=== PATIENT | female | born 1955 | race Asian ===

== ENCOUNTER 2020-06-20 14:58 | Outpatient (CLI) | payer BC ==
--- NOTE | 2020-06-20 15:16 | RAD ---
EXAM: Chest 2 views: HISTORY: Dyspnea COMPARISON: None. FINDINGS: There is a normal-sized cardiomediastinal silhouette. There appears be a small to moderate left pleur al effusion with adjacent atelectasis versus infiltrate. The opacity in the left lung base may be slightly nodular in appearance. No acute osseous abnormality. IMPRESSION: Left pleural effusion with adjacent atelectasis versus infiltrate. The atelectasis appears slightly n odular in the left lung base and a mass cannot be entirely excluded.
== END 2020-06-20 14:59 | disposition home or self-care (01) ==
LOC: BICRAD 14:58
PROVIDERS: ATTEND Internal Medicine
DX: R06.00 Dyspnea, unspecified (principal); J90 Pleural effusion, not elsewhere classified; R91.8 Other nonspecific abnormal finding of lung field
CPT/HCPCS: 71046

== ENCOUNTER 2020-07-18 13:22 | Outpatient (CLI) | payer BC ==
[2020-07-18] MEDS ORDERED: Iopamidol-370 76% 500 ML 1 ML ONE (13:24)
--- NOTE | 2020-07-18 14:56 | CT ---
CT OF CHEST PERFORMED WITH CONTRAST ENHANCEMENT: 07/18/20 HISTORY: Nodular density seen associated with the left pleural effusion on recent chest x-ray. COMPARISON: Chest x-ray exam of 06/20/20. A large left pleural effusion is noted. There is associated pronounced atelectasis of the left lower lobe. There is a right lower lobe pulmonary nodule measuring 8 mm. There is some small 4 to 5 mm are as of nodularity along the minor fissure on the right. There is pleural based nodularity seen along t he anterior chest wall on the left. This would suggest that this is a malignant pleural effusion. There is mild left hilar adenopathy. There is enlarged prevascular lymph nodes measuring 10 to 11 mm in size and moderate left axillary adenopathy. In addition to these findings, there is an area of no dularity within the right breast which is indeterminate but could represent an additional breast mass in addition to the large 4.4 cm mass seen within the left breast. The visualized liver parenchyma shows diffuse fatty change. Right and left adrenal glands are normal. There is some small peripancreatic nodes and small gastrohepatic lymph nodes not definitely signific antly enlarged. No evidence of sclerotic bone lesion. This is most evident in the thoracic spine. IMPRESSION: 1. 4.3 cm lobulated left breast mass with nipple retraction and left axillary adenopathy. In add ition, there is evidence for metastatic disease. There is a right lower lobe pulmonary nodule. There is a large left pleural effusion with some changes along the pleura on the left which would suggest t his may represent a malignant pleural effusion and mediastinal lymphadenopathy. 2. Sclerotic bone lesions compatible with sclerotic bone metastases. 3. Nodular density within the right breast. Cannot exclude this is an additional breast mass. 4. Diffuse fatty change to the liver. 5. These findings were telephoned to Dr. Diez. POS: [facility] – [place]
== END 2020-07-18 13:23 | disposition home or self-care (01) ==
LOC: BICCT 13:22
PROVIDERS: ATTEND Internal Medicine
DX: R91.8 Other nonspecific abnormal finding of lung field (principal); N63.20 Unspecified lump in the left breast, unspecified quadrant; R59.0 Localized enlarged lymph nodes; R91.1 Solitary pulmonary nodule; J90 Pleural effusion, not elsewhere classified; M89.8X8 Other specified disorders of bone, other site; R92.2 Inconclusive mammogram; K76.0 Fatty (change of) liver, not elsewhere classified
CPT/HCPCS: 71260; 82565

== ENCOUNTER 2020-07-25 10:18 | Day surgery (SDC) | payer BC ==
[2020-07-24 13:41] VITALS: BMI 27.3
--- NOTE | 2020-07-25 10:46 | HP ---
HISTORY OF PRESENT ILLNESS: She is a pleasant 64-year-old [employer], who was seen by Dr. Isidoro Watkins, surgeon, for invasive ductal carcinoma of the left breast. She is now having difficulty breathing off and on for a period of time. Without any associated chest pain, chills, or sweats, but she did say she was having some difficulty breathing. In fact, up until recently, she has been relatively healthy. In fact, has no other major medical problems. She is a nonsmoker, nondrinker. No prior history of TB, pneumonia, or bronchial asthma. PAST MEDICAL HISTORY: Diabetes and hypertension. PREVIOUS SURGERIES: None until the recent breast associated biopsy. CHRONIC MEDICATIONS: 1. Vitamins. 2. Maybe Xanax. ALLERGIES: NO MEDICATION. SOCIAL HISTORY: Alcohol minimal. Tobacco, never used and negative. PHYSICAL EXAMINATION: VITAL SIGNS: Sats 90% on room air, pulse 110, blood pressure 138/80. CHEST: Decreased breath sounds, left lower 1/3. Right lung unremarkable. CARDIAC: Sinus tach. ABDOMEN: Soft. No mass. NEUROLOGIC: Unremarkable. ASSESSMENT: Left pleural effusion, metastatic breast carcinoma. PLAN: Outpatient thoracentesis has been performed. Further directions after above. Job ID: [id number]
--- NOTE | 2020-07-25 11:52 | RAD ---
RADIOGRAPH CHEST 1 VIEW: DATE: 07/25/2020 TIME: 11:41 AM HISTORY: 64-year-old female status post thoracentesis COMPARISON: 06/20/2020 FINDINGS: There has been interval decrease in left pleural effusion. There is residual airspace density at left lung base. No pulmonary edema. No pneumothorax. No cardiom egaly or mediastinal widening. Right lung pérez are clear. IMPRESSION: 1) interval decrease in volume of now apparently small left pleural effusion. 2) residual airspace densities at left lung base probably represents atelectasis, although pneumonia cannot be excluded. 3) no pneumothorax.
[2020-07-25 12:57] LABS: RBC Count-Automated (BF) 48013 /cu.mm; WBC/Nucleated-Auto (BF) 1779 uL
[2020-07-25 13:25] LABS: Body Fluid Source Thoracentesis Fluid
[2020-07-25 13:26] LABS: BF Color Red; Clarity Cloudy/Turbid (Clear); Tube # 1
--- NOTE | 2020-07-25 13:28 | OP ---
DATE OF PROCEDURE: 07/25/2020 PROCEDURE PERFORMED: Thoracentesis. INDICATION: Left pleural effusion. DESCRIPTION OF PROCEDURE: After informed consent, the patient was sitting upright in bed. The left posterior thorax was cleaned with chlorhexidine. Thereafter, 1% lidocaine was infiltrated in the left midscapular line using a 23-gauge needle all the way to the pleura. Pleural cavity was entered in and about 20 mL of bloody effusion was removed thereafter using an 8-Khmer catheter, a total of 1400 mL of bloody effusion was removed. The patient tolerated the procedure well. She did have some pleuritic chest pain postprocedure. X-ray pending. Pleural effusion was sent for appropriate studies including cytology and culture. DC NOTE;;; she tolerated the procedure well. Results revealed to the patient and family, further recommendation after above. Job ID: [id number] MTDD
[2020-07-25 13:48] LABS: BF Segmented Neutrophils 1 %; Cell Count Non Hematic 55 %; Lymphocytes 44 %
== END 2020-07-25 12:05 | disposition home or self-care (01) ==
LOC: SDC 10:18
PROVIDERS: ATTEND Internal Medicine Pulmonary Disease
PROC: 0BJQ3ZZ Inspection of Pleura, Percutaneous Approach (ICD-10-PCS; principal; 2020-07-25)
DX: J90 Pleural effusion, not elsewhere classified (principal); C50.919 Malignant neoplasm of unspecified site of unspecified female breast; E11.9 Type 2 diabetes mellitus without complications; I10 Essential (primary) hypertension
CPT/HCPCS: 32554; 71045; 82150; 82945; 83615; 83986; 84157; 84478; 85060; 87070; 87116; 87205; 87206; 88112; 88305; 88313; 88341; 88342; 89051; J1642

== ENCOUNTER 2020-08-01 08:36 | Outpatient (CLI) | payer BC ==
[2020-08-01] MEDS ORDERED: Iopamidol 370 76% 100 ML VIAL ONE (09:38)
--- NOTE | 2020-08-01 10:06 | CT ---
CT Abdomen Pelvis W Con History: Breast cancer Comparison: CT chest July 18, 2020 Findings: New clip within the large left breast mass. Large layering left pleural effusion. Abnormal soft tissue attenuation of the left pericardiophrenic fat pad concerning for metastatic disease. Incompletely evaluated soft tissue attenuation along the left hilum also concerning for metastatic di sease. 7 mm nodule right lower lobe axial image 8 concerning for metastatic disease. Diffuse hepatic steatosis. No abnormal hepatic mass. Gallbladder, pancreas, spleen, adrenal glands ar e without metastatic disease. No free intraperitoneal gas or fluid. No retroperitoneal periaortic adenopathy. Likely reactive left gastric lymph node axial image 29 measures 7 mm in short axis. No enlarged lymph nodes per size criteria. Abnormal focus of sclerosis along the left T11 pedicle. Abnormal sclerosis of the anterior L1 vertebr al body. Incompletely evaluated necks lytic and sclerotic focus of the T7 vertebral body extending into the pe dicle. Abnormal lucency of the L2 vertebral body axial image 44 measures up to 1 cm. 1.5 cm mass of the right breast at 6:00. Impression: 1. Left breast cancer with left hemithorax pleural involvement as well as involvement of the left per icardiophrenic fat pad and likely of the left hilum. 2. 1.5 cm mass right breast 6:00. 3. Mixed lytic and scarred foci of the spine suggesting metastatic disease.
--- NOTE | 2020-08-01 13:20 | NM ---
NM Bone Scan STANDARD History: Malignant neoplasm of unspecified site unspecified female breast Comparison: CT examination August 01 and August 07, 2020 Findings: Whole body delayed imaging was performed after the intravenous administration 30 mCi techne tium 99m MDP. Adequate osseous radiotracer uptake. Abnormal increased radiotracer uptake of the right calvarium. Al so increased uptake within the posterior elements of T6 and T7. The known lower thoracic and lumbar spine metastatic foci are too small to yet be appreciated on bone scan. Subtle focus of abnormal increased radiotracer uptake along the left anterior superior iliac spine. Impression: Right calvarium, thoracic and left iliac metastatic disease. Abnormal foci of sclerosis o f the lower thoracic spine and lumbar spine as seen on recent CT examination are not yet visualized on the bone scan although are still felt to be metastatic in nature.
== END 2020-08-01 08:37 | disposition home or self-care (01) ==
LOC: CT 08:36
PROVIDERS: ATTEND Internal Medicine Hematology & Oncology
DX: C50.912 Malignant neoplasm of unspecified site of left female breast (principal); N63.14 Unspecified lump in the right breast, lower inner quadrant; C79.51 Secondary malignant neoplasm of bone
CPT/HCPCS: 74177; 78306; A9503; Q9967

== ENCOUNTER 2021-04-21 08:55 | Outpatient (CLI) | payer BC ==
[2021-04-21] MEDS ORDERED: Iopamidol 370 76% 100 ML VIAL ONE (09:22)
== END 2021-04-21 08:56 | disposition home or self-care (01) ==
LOC: CT 08:55
PROVIDERS: ATTEND Internal Medicine Hematology & Oncology
DX: C50.919 Malignant neoplasm of unspecified site of unspecified female breast (principal); C79.51 Secondary malignant neoplasm of bone; N63.10 Unspecified lump in the right breast, unspecified quadrant; N63.20 Unspecified lump in the left breast, unspecified quadrant; K76.9 Liver disease, unspecified
CPT/HCPCS: 71260; 74177; 78306; A9503

== ENCOUNTER 2021-10-28 09:04 | Outpatient (CLI) | payer MEDICARE, BC ==
[2021-10-28] MEDS ORDERED: Iopamidol 370 76% 100 ML VIAL ONE (10:59)
== END 2021-10-28 09:05 | disposition home or self-care (01) ==
LOC: CT 09:04
PROVIDERS: ATTEND Internal Medicine Hematology & Oncology
DX: C50.919 Malignant neoplasm of unspecified site of unspecified female breast (principal); C79.51 Secondary malignant neoplasm of bone; K76.9 Liver disease, unspecified; J90 Pleural effusion, not elsewhere classified; K76.0 Fatty (change of) liver, not elsewhere classified; N63.10 Unspecified lump in the right breast, unspecified quadrant
CPT/HCPCS: 71260; 74177; Q9967

== ENCOUNTER 2022-04-28 08:39 | Outpatient (CLI) | payer MEDICARE, BC ==
[2022-04-28] MEDS ORDERED: Iopamidol 370 76% 100 ML VIAL ONE (09:32)
== END 2022-04-28 08:40 | disposition home or self-care (01) ==
LOC: CT 08:39
PROVIDERS: ATTEND Internal Medicine Hematology & Oncology
DX: C50.919 Malignant neoplasm of unspecified site of unspecified female breast (principal); C79.51 Secondary malignant neoplasm of bone; J90 Pleural effusion, not elsewhere classified; K76.0 Fatty (change of) liver, not elsewhere classified; R59.0 Localized enlarged lymph nodes; N63.10 Unspecified lump in the right breast, unspecified quadrant
CPT/HCPCS: 71260; 74177; 78306; A9503; Q9967

== ENCOUNTER 2022-11-16 08:28 | Outpatient (CLI) | payer MEDICARE, BC | END 2022-11-16 08:29 | disposition home or self-care (01) | LOC: CT 08:28 → NM 08:29 | PROVIDERS: ATTEND Internal Medicine Hematology & Oncology | DX: C50.919 Malignant neoplasm of unspecified site of unspecified female breast (principal); C79.51 Secondary malignant neoplasm of bone | CPT/HCPCS: 78306; A9503 ==

== ENCOUNTER 2023-06-15 07:49 | Outpatient (CLI) | payer MEDICARE, BC | END 2023-06-15 07:50 | disposition home or self-care (01) | LOC: CT 07:49 | PROVIDERS: ATTEND Internal Medicine Hematology & Oncology | DX: C50.919 Malignant neoplasm of unspecified site of unspecified female breast (principal); C79.51 Secondary malignant neoplasm of bone | CPT/HCPCS: 71260; 74177; 78306; A9503 ==

== ENCOUNTER 2024-02-27 08:33 | Outpatient (CLI) | payer MEDICARE ==
[2024-02-27] MEDS ORDERED: Iopamidol 370 76% 100 ML VIAL ONE (09:59)
== END 2024-02-27 08:34 | disposition home or self-care (01) ==
LOC: CT 08:33
PROVIDERS: ATTEND Internal Medicine Hematology & Oncology
DX: C50.919 Malignant neoplasm of unspecified site of unspecified female breast (principal); C79.51 Secondary malignant neoplasm of bone
CPT/HCPCS: 71260; 74177; 78306; A9503; Q9967

== ENCOUNTER 2024-10-31 08:33 | Outpatient (CLI) | payer MEDICARE ==
[2024-10-31] MEDS ORDERED: Iopamidol 370 76% 100 ML VIAL ONE (09:26)
== END 2024-10-31 08:34 | disposition home or self-care (01) ==
LOC: CT 08:33
PROVIDERS: ATTEND Internal Medicine Hematology & Oncology
DX: C50.919 Malignant neoplasm of unspecified site of unspecified female breast (principal); C79.51 Secondary malignant neoplasm of bone
CPT/HCPCS: 71260; 74177; 78306; A9503

== ENCOUNTER 2025-05-17 10:15 | Outpatient (CLI) | payer MEDICARE | END 2025-05-17 10:16 | disposition home or self-care (01) | LOC: PET 10:15 | PROVIDERS: ATTEND Internal Medicine Hematology & Oncology | DX: C50.919 Malignant neoplasm of unspecified site of unspecified female breast (principal); C79.51 Secondary malignant neoplasm of bone; R18.8 Other ascites; M89.9 Disorder of bone, unspecified; J90 Pleural effusion, not elsewhere classified | CPT/HCPCS: 78815; A9552 ==

== ENCOUNTER → 2025-07-09 | Day surgery (SDC) | payer MEDICARE ==
[~2025-07-09] MED LIST: Lidocaine 1% PF 5 ML VIAL ONE; Lidocaine 1% w/Epinephrine 1:100K 20 ML VIAL ONE; Sodium Bicarbonate 2.5 MEQ/5 ML SDV ONE
[2025-07-09 12:57] LABS: #Basophils 0.05 10x3/uL (0.0-0.2); #Eosinophils 0.03 10x3/uL (0.0-0.7); #Monocytes 0.74 10x3/uL (0.11-0.59); #Neutrophils 3.58 10x3/uL (1.40-6.50); %Basophils 0.9 % (0.0-1.0); %Eosinophils 0.5 % (0.0-10.0); %Lymphocytes 24.0 % (21.0-51.0); %Monocytes 12.8 % (0.0-10.0); %Neutrophils 61.6 % (42.0-75.0); Hematocrit 37.0 % (36.0-47.0); Hemoglobin 11.8 g/dL (12.0-16.0); Mean Corpuscular Hemoglobin 33.1 pg (27.0-31.0); Mean Corpuscular Volume 103.6 fL (78.0-98.0); Platelet Count 319 10x3/uL (130-400); Red Blood Cell (RBC) Count 3.57 mill/uL (4.20-5.40); White Blood Cell (WBC) Count 5.80 10x3/uL (4.8-10.8)
[2025-07-09 13:14] LABS: INR-International Normal Ratio 1.4; Prothrombin Time 16.9 sec (12.0-14.7)
[2025-07-09 13:20] LABS: Anion Gap 13 mmol/L (10-20); BUN (Urea Nitrogen) 5 mg/dL (9.8-20.1); Calc. Creatinine Clearance 0 mL/min (70-130); Calcium 8.9 mg/dL (7.8-10.44); Carbon Dioxide 22 mmol/L (23-31); Chloride 103 mmol/L (98-107); Glucose 104 mg/dL (80-115); Potassium 3.8 mmol/L (3.5-5.1); Sodium 134 mmol/L (136-145)
[2025-07-09 13:49] LABS: PTT 36.4 sec (22.9-36.1)
[2025-07-09 16:04] LABS: RBC Count-Automated (BF) 181 /cu.mm; WBC/Nucleated-Auto (BF) 143 /cu.mm
[2025-07-09 16:35] LABS: BF Segmented Neutrophils 3 %; Cell Count Non Hematic 56 %
[2025-07-10 15:52] LABS: ALT (SGPT) 16 U/L (Less than 34); AST (SGOT) 54 U/L (11-34); Albumin 2.6 g/dL (3.1-4.5); Alkaline Phosphatase 67 U/L (40-110); Bilirubin, Direct 0.6 mg/dL (0.1-0.3); Bilirubin, Total 1.1 mg/dL (0.3-1.2)
== END ==
LOC: ULT 12:38
PROVIDERS: ATTEND Internal Medicine Gastroenterology
PROC: 0W9G3ZZ Drainage of Peritoneal Cavity, Percutaneous Approach (ICD-10-PCS; principal; 2025-07-09)
DX: R18.8 Other ascites (principal); D69.6 Thrombocytopenia, unspecified; C50.919 Malignant neoplasm of unspecified site of unspecified female breast
CPT/HCPCS: 36415; 49083; 80048; 80076; 82042; 84157; 85025; 85060; 85610; 85730; 87070; 87205; 88112; 88305; 89051

== ENCOUNTER 2025-07-22 13:17 | Inpatient (IN) | payer MEDICARE ==
[~2025-07-22 13:17] MED LIST changes: +Iopamidol-370 76% 500 ML MDV (1 ML CHARGE) ONE; -Lidocaine 1% PF 5 ML VIAL ONE; -Lidocaine 1% w/Epinephrine 1:100K 20 ML VIAL ONE; -Sodium Bicarbonate 2.5 MEQ/5 ML SDV ONE
[2025-07-22] MEDS ORDERED: Cefepime 2 GM VIAL ONE (13:53)
[2025-07-22 14:05] LABS: INR-International Normal Ratio 1.3; Prothrombin Time 15.8 sec (12.0-14.7)
[2025-07-22 14:06] LABS: PTT 31.0 sec (22.9-36.1)
[2025-07-22 14:09] LABS: ALT (SGPT) 19 U/L (Less than 34); AST (SGOT) 62 U/L (11-34); Albumin 2.2 g/dL (3.1-4.5); Alkaline Phosphatase 49 U/L (40-110); Anion Gap 13 mmol/L (10-20); BUN (Urea Nitrogen) 11 mg/dL (9.8-20.1); Bilirubin, Total 1.5 mg/dL (0.3-1.2); Calc. Creatinine Clearance 0 mL/min (70-130); Calcium 7.9 mg/dL (7.8-10.44); Carbon Dioxide 17 mmol/L (23-31); Chloride 107 mmol/L (98-107); Globulin 4.5 g/dL (2.4-3.5); Glucose 97 mg/dL (80-115); Lipase 46 U/L (8-78); Magnesium 1.7 mg/dL (1.6-2.6); Potassium 3.2 mmol/L (3.5-5.1); Sodium 134 mmol/L (136-145)
[2025-07-22 14:13] LABS: Hematocrit 35.2 % (36.0-47.0); Hemoglobin 11.9 g/dL (12.0-16.0); Mean Corpuscular Hemoglobin 33.7 pg (27.0-31.0); Mean Corpuscular Volume 99.7 fL (78.0-98.0); Platelet Count 153 10x3/uL (130-400); Red Blood Cell (RBC) Count 3.53 mill/uL (4.20-5.40); White Blood Cell (WBC) Count 1.14 10x3/uL (4.8-10.8)
[2025-07-22 14:37] LABS: Anisocytosis MARKED = >30 cells HPF (0-5); Burr Cells SLIGHT = 2-5 cells HPF (0-1); Macrocytosis MARKED = >30 cells HPF (0-5); Ovalocytes MODERATE= 6-15 cells HPF (0-1); Platelet Adequacy Comment Platelets Normal; Polychromasia SLIGHT = 2-3 cells HPF (0-2); Smudge Cells 14.7 %
[2025-07-22] MEDS ORDERED: VANCOMYCIN 2 GRAM/400 ML BAG ONE (14:42)
[2025-07-22 15:00] LABS: Bacteria/HPF None Seen HPF (None Seen); CAUTI Indications for Culture Alt mental st,lethar; Glucose, Urine (Dipstick) Normal (Negative); Leukocyte Negative Leu/uL (Negative); Protein, Urine (Dipstick) 50 mg/dL (Neg-Trace); RBC/HPF None Seen HPF (0-3); Specific Gravity, Urine 1.024 (1.002-1.036); WBC/HPF 0-3 HPF (0-3)
[2025-07-22 15:06] LABS: Urine Culture Reflex No No
[2025-07-22] MEDS ORDERED: Senokot S 8.6-50 MG TAB PO PRN (17:55)
[2025-07-22] MEDS: Furosemide 20 MG (2 mL) VIAL SLOW IVP SCH ×2 (23:13→23:40)
[2025-07-22] MEDS: Acetaminophen 325 MG TAB PO PRN (23:37)
[2025-07-23 04:34] LABS: Hematocrit 34.8 % (36.0-47.0); Hemoglobin 11.6 g/dL (12.0-16.0); Mean Corpuscular Hemoglobin 34.1 pg (27.0-31.0); Mean Corpuscular Volume 102.4 fL (78.0-98.0); Platelet Count 90 10x3/uL (130-400); Red Blood Cell (RBC) Count 3.40 mill/uL (4.20-5.40); White Blood Cell (WBC) Count 2.24 10x3/uL (4.8-10.8)
[2025-07-23 04:49] LABS: Anion Gap 13 mmol/L (10-20); BUN (Urea Nitrogen) 12 mg/dL (9.8-20.1); Calc. Creatinine Clearance 0 mL/min (70-130); Calcium 7.4 mg/dL (7.8-10.44); Carbon Dioxide 19 mmol/L (23-31); Chloride 110 mmol/L (98-107); Glucose 91 mg/dL (80-115); Potassium 3.5 mmol/L (3.5-5.1); Sodium 138 mmol/L (136-145)
[2025-07-23] MEDS: Vancomycin 1 GM in Premix 1 BAG IVPB SCH (05:01)
[2025-07-23 05:37] LABS: Anisocytosis SLIGHT = 6-15 cells HPF (0-5); Burr Cells SLIGHT = 2-5 cells HPF (0-1); Macrocytosis SLIGHT = 6-15 cells HPF (0-5); Ovalocytes SLIGHT = 2-5 cells HPF (0-1); Platelet Adequacy Comment Platelets Decreased; Polychromasia SLIGHT = 2-3 cells HPF (0-2); Smudge Cells 15.4 %
[2025-07-23] MEDS: PNEUMOC 20-VAL CONJ-DIP CRM/PF 0.5 ML SYRINGE IM ONE (07:07)
[2025-07-23] MEDS: Enoxaparin 40 MG (0.4 mL) SYRINGE SC SCH (08:58)
[2025-07-23] MEDS ORDERED: Sodium Bicarbonate 2.5 MEQ/5 ML SDV ONE (10:43)
[2025-07-23] MEDS ORDERED: Lidocaine 1% PF 5 ML VIAL ONE (10:43)
[2025-07-23 12:46] LABS: RBC Count-Automated (BF) 1313 /cu.mm; WBC/Nucleated-Auto (BF) 3019 /cu.mm
[2025-07-23 13:04] LABS: BF Segmented Neutrophils 80 %; Cell Count Non Hematic 12 %
[2025-07-23] MEDS: cefTRIAXone\\ROCEPHIN 2 GM in Sodium Chloride 0.9% 100 ML IVPB SCH (15:40)
[2025-07-23 16:21] VITALS: BMI 30.7; BMI 30.9
[2025-07-23] MEDS: Pantoprazole 40 MG DR.TAB PO SCH (16:56)
[2025-07-23] MEDS: Dicyclomine 10 MG CAP PO SCH (16:56)
[2025-07-23] MEDS: Vancomycin HCl 1.25 GM in Sodium Chloride 0.9% 250 ML 250 ML IVPB SCH ×2 (16:57→23:58)
[2025-07-23] MEDS: Sodium Bicarbonate Tab 325 MG TAB PO SCH (21:17)
[2025-07-23] MEDS: ALPRAZolam 0.25 MG TAB PO PRN (21:17)
[2025-07-23] MEDS: Melatonin 3 MG TAB PO PRN (23:59)
[2025-07-24 05:22] LABS: Hematocrit 30.8 % (36.0-47.0); Hemoglobin 10.5 g/dL (12.0-16.0); Mean Corpuscular Hemoglobin 33.5 pg (27.0-31.0); Mean Corpuscular Volume 98.4 fL (78.0-98.0); Platelet Count 68 10x3/uL (130-400); Red Blood Cell (RBC) Count 3.13 mill/uL (4.20-5.40); White Blood Cell (WBC) Count 2.25 10x3/uL (4.8-10.8)
[2025-07-24] MEDS: HYDROcodone/Acetaminophen 5/325 mg Tablet PO PRN (05:47)
[2025-07-24 05:49] LABS: Vancomycin, Random 27.3 ug/mL (See Comment)
[2025-07-24 05:51] LABS: Anion Gap 12 mmol/L (10-20); BUN (Urea Nitrogen) 14 mg/dL (9.8-20.1); Calc. Creatinine Clearance 150 mL/min (70-130); Calcium 7.1 mg/dL (7.8-10.44); Carbon Dioxide 21 mmol/L (23-31); Chloride 105 mmol/L (98-107); Glucose 83 mg/dL (80-115); Potassium 3.0 mmol/L (3.5-5.1); Sodium 135 mmol/L (136-145)
[2025-07-24 05:53] LABS: Burr Cells SLIGHT = 2-5 cells HPF (0-1); Platelet Adequacy Comment Platelets Decreased; Smudge Cells 22.0 %; Target Cells SLIGHT = 2-5 cells HPF (0-1)
[2025-07-24] MEDS: Furosemide 40 MG TAB PO SCH (06:53)
[2025-07-24] MEDS: Pantoprazole 40 MG DR.TAB PO SCH (10:42)
[2025-07-24] MEDS: Vancomycin 1 GM in Premix 1 BAG IVPB SCH (12:34)
[2025-07-25 05:43] LABS: Hematocrit 28.9 % (36.0-47.0); Hemoglobin 9.8 g/dL (12.0-16.0); Mean Corpuscular Hemoglobin 33.3 pg (27.0-31.0); Mean Corpuscular Volume 98.3 fL (78.0-98.0); Platelet Count 51 10x3/uL (130-400); Red Blood Cell (RBC) Count 2.94 mill/uL (4.20-5.40); White Blood Cell (WBC) Count 1.79 10x3/uL (4.8-10.8)
[2025-07-25 05:55] LABS: Anion Gap 8 mmol/L (10-20); BUN (Urea Nitrogen) 13 mg/dL (9.8-20.1); Calc. Creatinine Clearance 147 mL/min (70-130); Calcium 7.2 mg/dL (7.8-10.44); Carbon Dioxide 24 mmol/L (23-31); Chloride 104 mmol/L (98-107); Glucose 94 mg/dL (80-115); Potassium 2.7 mmol/L (3.5-5.1); Sodium 133 mmol/L (136-145)
[2025-07-25 06:13] LABS: Anisocytosis SLIGHT = 6-15 cells HPF (0-5); Burr Cells SLIGHT = 2-5 cells HPF (0-1); Macrocytosis SLIGHT = 6-15 cells HPF (0-5); Nucleated RBC (Manual Ct) 1 % (0); Ovalocytes SLIGHT = 2-5 cells HPF (0-1); Platelet Adequacy Comment Platelets Decreased; Polychromasia SLIGHT = 2-3 cells HPF (0-2); Smudge Cells 24.0 %
[2025-07-25] MEDS: Potassium Chloride 20 MEQ in Premix 1 BAG IVPB SCH (08:15)
[2025-07-26 05:34] LABS: Vancomycin, Random 21.7 ug/mL (See Comment)
[2025-07-26 05:38] LABS: ALT (SGPT) 14 U/L (Less than 34); AST (SGOT) 43 U/L (11-34); Albumin 1.5 g/dL (3.1-4.5); Alkaline Phosphatase 40 U/L (40-110); Anion Gap 6 mmol/L (10-20); BUN (Urea Nitrogen) 10 mg/dL (9.8-20.1); Bilirubin, Total 1.2 mg/dL (0.3-1.2); Calc. Creatinine Clearance 136 mL/min (70-130); Calcium 7.4 mg/dL (7.8-10.44); Carbon Dioxide 28 mmol/L (23-31); Chloride 101 mmol/L (98-107); Globulin 4.0 g/dL (2.4-3.5); Glucose 96 mg/dL (80-115); Magnesium 2.0 mg/dL (1.6-2.6); Potassium 3.2 mmol/L (3.5-5.1); Sodium 132 mmol/L (136-145)
[2025-07-26 05:42] LABS: #Basophils Less than 0.03 10x3/uL (0.0-0.2); #Eosinophils Less than 0.03 10x3/uL (0.0-0.7); #Monocytes 0.28 10x3/uL (0.11-0.59); #Neutrophils 1.13 10x3/uL (1.40-6.50); %Basophils 0.5 % (0.0-1.0); %Eosinophils 0.5 % (0.0-10.0); %Lymphocytes 26.9 % (21.0-51.0); %Monocytes 14.2 % (0.0-10.0); %Neutrophils 57.4 % (42.0-75.0); Hematocrit 28.6 % (36.0-47.0); Hemoglobin 9.8 g/dL (12.0-16.0); Mean Corpuscular Hemoglobin 33.2 pg (27.0-31.0); Mean Corpuscular Volume 96.9 fL (78.0-98.0); Platelet Count 50 10x3/uL (130-400); Red Blood Cell (RBC) Count 2.95 mill/uL (4.20-5.40); White Blood Cell (WBC) Count 1.97 10x3/uL (4.8-10.8)
[2025-07-26 05:46] LABS: CRP, High Sensitivity at Bryan 19.53 mg/dL (< or = 0.5)
[2025-07-26 16:12] LABS: Fluid, Triglycerides 18 mg/dL (Not Available); Pleural Fluid, Amylase Less than 30 U/L (Not Available); Pleural Fluid, Glucose 122 mg/dL; Pleural Fluid, LDH 123 U/L (Not Available); Pleural Fluid, Protein 2.3 g/dL
[2025-07-26 16:16] LABS: RBC Count-Automated (BF) 4191 /cu.mm; WBC/Nucleated-Auto (BF) 179 /cu.mm
[2025-07-26 16:45] LABS: Cell Count Non Hematic 5 %
[2025-07-26 16:48] LABS: BF Segmented Neutrophils 78 %
[2025-07-26 17:04] LABS: ALT (SGPT) 19 U/L (Less than 34); AST (SGOT) 56 U/L (11-34); Albumin 1.7 g/dL (3.1-4.5); Alkaline Phosphatase 49 U/L (40-110); Anion Gap 11 mmol/L (10-20); BUN (Urea Nitrogen) 9 mg/dL (9.8-20.1); Bilirubin, Total 1.0 mg/dL (0.3-1.2); Calc. Creatinine Clearance 129 mL/min (70-130); Calcium 7.7 mg/dL (7.8-10.44); Carbon Dioxide 23 mmol/L (23-31); Chloride 100 mmol/L (98-107); Globulin 4.2 g/dL (2.4-3.5); Glucose 102 mg/dL (80-115); Potassium 3.5 mmol/L (3.5-5.1); Sodium 130 mmol/L (136-145)
[2025-07-27 06:12] LABS: Hematocrit 29.2 % (36.0-47.0); Hemoglobin 9.8 g/dL (12.0-16.0); Mean Corpuscular Hemoglobin 33.2 pg (27.0-31.0); Mean Corpuscular Volume 99.0 fL (78.0-98.0); Platelet Count 67 10x3/uL (130-400); Red Blood Cell (RBC) Count 2.95 mill/uL (4.20-5.40); White Blood Cell (WBC) Count 1.67 10x3/uL (4.8-10.8)
[2025-07-27 06:37] LABS: ALT (SGPT) 18 U/L (Less than 34); AST (SGOT) 52 U/L (11-34); Albumin 1.6 g/dL (3.1-4.5); Alkaline Phosphatase 49 U/L (40-110); Anion Gap 8 mmol/L (10-20); BUN (Urea Nitrogen) 7 mg/dL (9.8-20.1); Bilirubin, Total 1.1 mg/dL (0.3-1.2); Calc. Creatinine Clearance 129 mL/min (70-130); Calcium 7.8 mg/dL (7.8-10.44); Carbon Dioxide 27 mmol/L (23-31); Chloride 102 mmol/L (98-107); Globulin 4.3 g/dL (2.4-3.5); Glucose 98 mg/dL (80-115); Magnesium 2.0 mg/dL (1.6-2.6); Potassium 4.1 mmol/L (3.5-5.1); Sodium 133 mmol/L (136-145)
[2025-07-27 06:41] LABS: Anisocytosis SLIGHT = 6-15 cells HPF (0-5); Macrocytosis SLIGHT = 6-15 cells HPF (0-5); Platelet Adequacy Comment Platelets Decreased; Poikilocytosis SLIGHT = 6-15 cells HPF (0-5); Polychromasia SLIGHT = 2-3 cells HPF (0-2)
[2025-07-27] MEDS: Guaifenesin DM 100-10/5 ML UDCUP PO PRN (15:59)
[2025-07-28 06:04] LABS: #Basophils Less than 0.03 10x3/uL (0.0-0.2); #Eosinophils Less than 0.03 10x3/uL (0.0-0.7); #Monocytes 0.34 10x3/uL (0.11-0.59); #Neutrophils 0.57 10x3/uL (1.40-6.50); %Basophils 1.4 % (0.0-1.0); %Eosinophils 1.4 % (0.0-10.0); %Lymphocytes 33.8 % (21.0-51.0); %Monocytes 23.4 % (0.0-10.0); %Neutrophils 39.3 % (42.0-75.0); Hematocrit 28.3 % (36.0-47.0); Hemoglobin 9.6 g/dL (12.0-16.0); Mean Corpuscular Hemoglobin 33.4 pg (27.0-31.0); Mean Corpuscular Volume 98.6 fL (78.0-98.0); Platelet Count 61 10x3/uL (130-400); Red Blood Cell (RBC) Count 2.87 mill/uL (4.20-5.40); White Blood Cell (WBC) Count 1.45 10x3/uL (4.8-10.8)
[2025-07-28] MEDS: TBO-Filgrastim 300 MCG/0.5 ML VIAL SC SCH (18:04)
[2025-07-28] MEDS: Ondansetron PF 4 MG/2 ML Vial IVP PRN (20:07)
[2025-07-29 05:49] LABS: Hematocrit 30.2 % (36.0-47.0); Hemoglobin 10.0 g/dL (12.0-16.0); Mean Corpuscular Hemoglobin 32.9 pg (27.0-31.0); Mean Corpuscular Volume 99.3 fL (78.0-98.0); Platelet Count 84 10x3/uL (130-400); Red Blood Cell (RBC) Count 3.04 mill/uL (4.20-5.40); White Blood Cell (WBC) Count 7.62 10x3/uL (4.8-10.8)
[2025-07-29 06:05] LABS: Anion Gap 8 mmol/L (10-20); BUN (Urea Nitrogen) 6 mg/dL (9.8-20.1); Calc. Creatinine Clearance 129 mL/min (70-130); Calcium 8.3 mg/dL (7.8-10.44); Carbon Dioxide 24 mmol/L (23-31); Chloride 103 mmol/L (98-107); Glucose 92 mg/dL (80-115); Potassium 4.2 mmol/L (3.5-5.1); Sodium 131 mmol/L (136-145)
[2025-07-29 06:10] LABS: Vancomycin, Random 23.6 ug/mL (See Comment)
[2025-07-29 06:25] LABS: Anisocytosis SLIGHT = 6-15 cells HPF (0-5); Macrocytosis SLIGHT = 6-15 cells HPF (0-5); Platelet Adequacy Comment Platelets Decreased; Polychromasia SLIGHT = 2-3 cells HPF (0-2)
[2025-07-29] MEDS: Albumin 25% 25 GM (100 mL) BOT IVPB SCH (12:46)
[2025-07-29] MEDS: diphenhydrAMINE 25 MG CAP PO PRN (16:22)
[2025-07-30 05:10] LABS: Anion Gap 9 mmol/L (10-20); BUN (Urea Nitrogen) 7 mg/dL (9.8-20.1); Calc. Creatinine Clearance 120 mL/min (70-130); Calcium 9.0 mg/dL (7.8-10.44); Carbon Dioxide 27 mmol/L (23-31); Chloride 103 mmol/L (98-107); Glucose 91 mg/dL (80-115); Potassium 4.2 mmol/L (3.5-5.1); Sodium 135 mmol/L (136-145)
[2025-07-30 05:59] LABS: #Basophils 0.05 10x3/uL (0.0-0.2); #Eosinophils 0.06 10x3/uL (0.0-0.7); #Monocytes 0.58 10x3/uL (0.11-0.59); #Neutrophils 7.66 10x3/uL (1.40-6.50); %Basophils 0.5 % (0.0-1.0); %Eosinophils 0.7 % (0.0-10.0); %Lymphocytes 7.8 % (21.0-51.0); %Monocytes 6.3 % (0.0-10.0); %Neutrophils 83.8 % (42.0-75.0); Hematocrit 27.3 % (36.0-47.0); Hemoglobin 9.1 g/dL (12.0-16.0); Mean Corpuscular Hemoglobin 33.8 pg (27.0-31.0); Mean Corpuscular Volume 101.5 fL (78.0-98.0); Platelet Count 73 10x3/uL (130-400); Red Blood Cell (RBC) Count 2.69 mill/uL (4.20-5.40); White Blood Cell (WBC) Count 9.14 10x3/uL (4.8-10.8)
[2025-07-30] MEDS: Furosemide 40 MG (4 mL) VIAL SLOW IVP SCH (14:10)
[2025-07-31 04:58] LABS: #Basophils 0.05 10x3/uL (0.0-0.2); #Eosinophils Less than 0.03 10x3/uL (0.0-0.7); #Monocytes 0.60 10x3/uL (0.11-0.59); #Neutrophils 4.92 10x3/uL (1.40-6.50); %Basophils 0.8 % (0.0-1.0); %Eosinophils 0.3 % (0.0-10.0); %Lymphocytes 11.2 % (21.0-51.0); %Monocytes 9.5 % (0.0-10.0); %Neutrophils 77.6 % (42.0-75.0); Hematocrit 30.0 % (36.0-47.0); Hemoglobin 10.0 g/dL (12.0-16.0); Mean Corpuscular Hemoglobin 32.9 pg (27.0-31.0); Mean Corpuscular Volume 98.7 fL (78.0-98.0); Platelet Count 95 10x3/uL (130-400); Red Blood Cell (RBC) Count 3.04 mill/uL (4.20-5.40); White Blood Cell (WBC) Count 6.34 10x3/uL (4.8-10.8)
[2025-07-31 05:15] LABS: ALT (SGPT) 15 U/L (Less than 34); AST (SGOT) 41 U/L (11-34); Albumin 2.8 g/dL (3.1-4.5); Alkaline Phosphatase 57 U/L (40-110); Anion Gap 9 mmol/L (10-20); BUN (Urea Nitrogen) 6 mg/dL (9.8-20.1); Bilirubin, Total 0.9 mg/dL (0.3-1.2); Calc. Creatinine Clearance 118 mL/min (70-130); Calcium 9.6 mg/dL (7.8-10.44); Carbon Dioxide 27 mmol/L (23-31); Chloride 100 mmol/L (98-107); Globulin 3.2 g/dL (2.4-3.5); Glucose 92 mg/dL (80-115); Potassium 4.1 mmol/L (3.5-5.1); Sodium 132 mmol/L (136-145)
[2025-07-31 15:18] VITALS: BP 129/73; TEMP 98.1
== END 2025-07-31 15:40 | disposition home or self-care (01) | DRG 871 ==
LOC: ERS 13:17 → MSONC 20:39
PROVIDERS: ADMIT Internal Medicine; ATTEND Hospitalist
PROC: 3E03329 Introduction of Other Anti-infective into Peripheral Vein, Percutaneous Approach (ICD-10-PCS; 2025-07-22)
PROC: 3E0234Z Introduction of Serum, Toxoid and Vaccine into Muscle, Percutaneous Approach (ICD-10-PCS; 2025-07-22)
PROC: 0W9G3ZZ Drainage of Peritoneal Cavity, Percutaneous Approach (ICD-10-PCS; principal; 2025-07-23)
PROC: 0T9B70Z Drainage of Bladder with Drainage Device, Via Natural or Artificial Opening (ICD-10-PCS; 2025-07-23)
PROC: 05HY33Z Insertion of Infusion Device into Upper Vein, Percutaneous Approach (ICD-10-PCS; 2025-07-24)
PROC: 0W9B3ZZ Drainage of Left Pleural Cavity, Percutaneous Approach (ICD-10-PCS; 2025-07-26)
PROC: 30233J1 Transfusion of Nonautologous Serum Albumin into Peripheral Vein, Percutaneous Approach (ICD-10-PCS; 2025-07-29)
DX: A40.9 Streptococcal sepsis, unspecified (principal); J96.01 Acute respiratory failure with hypoxia; K65.2 Spontaneous bacterial peritonitis; J90 Pleural effusion, not elsewhere classified; R18.8 Other ascites; E87.20 Acidosis, unspecified; D61.818 Other pancytopenia; K76.6 Portal hypertension; C79.51 Secondary malignant neoplasm of bone; D84.9 Immunodeficiency, unspecified; Z66 Do not resuscitate; K74.60 Unspecified cirrhosis of liver; R65.20 Severe sepsis without septic shock; Z23 Encounter for immunization; Z88.8 Allergy status to other drugs, medicaments and biological substances; Z91.148 Patient's other noncompliance with medication regimen for other reason; E87.6 Hypokalemia; Z98.890 Other specified postprocedural states; D05.11 Intraductal carcinoma in situ of right breast
CPT/HCPCS: 36415; 49083; 71045; 71275; 74177; 80048; 80053; 80202; 81001; 82042; 82150; 82945; 83605; 83615; 83690; 83735; 83880; 83986; 84157; 84478; 84484; 85025; 85060; 85610; 85730; 86141; 86300; 87040; 87070; 87077; 87086; 87102; 87116; 87149; 87186; 87205; 87206; 88112; 88305; 89051; 93005; 96361; 96365; 96366; 96367; J0692; J0696; J1447; J1940; J2270; J2405; J3373; J3375; J3480; J7050; P9047; Q9967